=== PATIENT | male | born 1975 | race Caucasian/White ===

== ENCOUNTER 2018-08-08 03:50 | Emergency (ER) | payer BC, OTHER ==
[2018-08-08 04:20] VITALS: BMI 33.6
[2018-08-08] MEDS ORDERED: CLINDAMYCIN 600MG PREMIX IVPB 600 MG/50 ML BAG IVPB ONE ×3 (05:01→05:08)
[2018-08-08] MEDS ORDERED: DEXAMETHASONE SOD PHOSPHATE 10 MG/1 ML VIAL IVPUSH ONE (05:01)
[2018-08-08] MEDS ORDERED: KETOROLAC TROMETHAMINE 30 MG/1 ML VIAL IVPUSH ONE (05:01)
[2018-08-08] MEDS ORDERED: SODIUM CHLORIDE 0.9% 500 ML INFUS.BAG IV ONE (05:02)
[2018-08-08] MEDS ORDERED: DEXAMETHASONE SOD PHOSPHATE 10 MG/1 ML VIAL ONE (05:07)
[2018-08-08] MEDS ORDERED: KETOROLAC TROMETHAMINE 30 MG/1 ML VIAL ONE (05:07)
--- NOTE | 2018-08-08 05:17 | PDOC ---
History of Present Illness - General History Source: Patient Exam Limitations: No Limitations - History of Present Illness Initial Comments: 08/08/18 05:11 Patient is a 42-year-old male past medical history of childhood asthma, here with complaints of sore throat 1 week. Patient states he may have had an upper respiratory infection but then started to have a sore throat with a temp of 101 and initally took some antibiotics given to him by his for 3 days. He stopped the antibiotics because he was feeling better, but then felt like the sore throat returning 2 days ago and has progressively worsened. States this morning his throat just got very uncomfortable, pain was 8/10, and he felt like the throat was closing and was getting more difficult to swallow. PMHX: as above PSOCHX: (+) cig 6/day, ALL: NKDA GENERAL/CONSTITUTIONAL: No fever or chills. No weakness. No weight change. HEAD, EYES, EARS, NOSE AND THROAT: No change in vision. No ear pain or discharge. (+) sore throat. CARDIOVASCULAR: No chest pain or shortness of breath. RESPIRATORY: No cough, wheezing, or hemoptysis. GASTROINTESTINAL: No nausea, vomiting, diarrhea or constipation. No rectal bleeding. GENITOURINARY: No dysuria, frequency, or change in urination. MUSCULOSKELETAL: No joint or muscle swelling or pain. No neck or back pain. SKIN AND BREASTS: No rash or easy bruising. NEUROLOGIC: No headache, vertigo, loss of consciousness, or loss of sensation. PSYCHIATRIC: No depression or anxiety. ENDOCRINE: No increased thirst. No abnormal weight change. HEMATOLOGIC/LYMPHATIC: No anemia, easy bleeding, or history of blood clots. ALLERGIC/IMMUNOLOGIC: No hives or skin allergy. No latex allergy. GENERAL: The patient is awake, alert, and fully oriented, in no acute distress. HEAD: Normal with no signs of trauma. EYES: Pupils equal, round and reactive to light, extraocular movements intact, sclera anicteric, conjunctiva clear. ENT: Ears normal, nares patent, oropharynx (+) swelling to the palatopharyngeal area with erythema R>L without exudates. Moist mucous membranes. NECK: Normal range of motion, supple with tender lymphadenopathy, JVD, or masses. LUNGS: Breath sounds equal, clear to auscultation bilaterally. No wheezes, and no crackles. HEART: Regular rate and rhythm, normal S1 and S2 without murmur, rub. ABDOMEN: Soft, nontender, normoactive bowel sounds. No guarding, no rebound. No masses. EXTREMITIES: Normal range of motion, no edema. No clubbing or cyanosis. No cords, erythema, or tenderness. NEUROLOGICAL: Cranial nerves II through XII grossly intact. Normal speech, normal gait. PSYCH: Normal mood, normal affect. SKIN: Warm, Dry, normal turgor, no rashes or lesions noted. <Segundo-Joby Gomez - Last Filed: 08/08/18 05:36> <Ceci Michel - Last Filed: 08/08/18 06:28> - General Chief Complaint: Sore Throat Stated Complaint: SORE THROAT Past History - Past Medical History Asthma: Yes COPD: No - Immunization History Immunization Up to Date: Yes - Suicide/Smoking/Psychosocial Hx Smoking Status: Yes Smoking History: Current every day smoker Have you smoked in the past 12 months: No Number of Cigarettes Smoked Daily: 6 Information on smoking cessation initiated: Yes Hx Alcohol Use: No Drug/Substance Use Hx: No Substance Use Type: None <HannahFernandez dick - Last Filed: 08/08/18 05:36> <Ceci Michel - Last Filed: 08/08/18 06:28> - Past Medical History Allergies/Adverse Reactions: Allergies Allergy/AdvReac Type Severity Reaction Status Date / Time No Known Allergies Allergy Verified 08/08/18 04:20 Home Medications: Ambulatory Orders Promethazine HCl/Codeine [Prometh-Codein 6.25-10 mg/5 ml] 5 ml PO Q8H PRN #60 syrup 04/09/15 Clindamycin [Cleocin -] 300 mg PO Q6HPO #28 capsule 03/19/17 *Physical Exam - Vital Signs Last Vital Signs Temp Pulse Resp BP Pulse Ox 98.1 F 94 H 18 129/78 98 08/08/18 04:14 08/08/18 04:14 08/08/18 04:14 08/08/18 04:14 08/08/18 04:14 <Joby Jarrett - Last Filed: 08/08/18 05:36> - Vital Signs Last Vital Signs Temp Pulse Resp BP Pulse Ox 98.1 F 94 H 18 129/78 98 08/08/18 04:14 08/08/18 04:14 08/08/18 04:14 08/08/18 04:14 08/08/18 04:14 <Ceci Michel - Last Filed: 08/08/18 06:28> ED Treatment Course - LABORATORY CBC & Chemistry Diagram: 08/08/18 05:15 08/08/18 05:15 <Joby Jarrett - Last Filed: 08/08/18 05:36> - LABORATORY CBC & Chemistry Diagram: 08/08/18 05:15 08/08/18 05:15 - ADDITIONAL ORDERS Additional order review: Laboratory Results 08/08/18 05:15 Sodium 138 Potassium 4.5 Chloride 104 Carbon Dioxide 25 Anion Gap 10 BUN 9 Creatinine 0.8 Creat Clearance w eGFR 107.07 Random Glucose 175 H Calcium 8.7 Total Bilirubin 0.3 AST 26 ALT 48 Alkaline Phosphatase 123 H Total Protein 7.9 Albumin 3.8 08/08/18 05:15 RBC 5.17 MCV 81.9 MCHC 32.8 RDW 14.5 MPV 7.2 L Neutrophils % 79.1 Lymphocytes % 10.4 Monocytes % 7.7 Eosinophils % 1.9 D Basophils % 0.9 - Medications Given in the ED: ED Medications Discontinued Medications Generic Name Dose Route Start Last Admin Trade Name Freq PRN Reason Stop Dose Admin Dexamethasone Sodium Phosphate 10 mg 08/08/18 05:01 08/08/18 05:21 Decadron Injection - IVPUSH 08/08/18 05:02 10 mg ONCE ONE Administration Clindamycin Phosphate 600 mg in 50 mls @ 100 mls/hr 08/08/18 05:01 08/08/18 05:21 Cleocin 600 Mg Premix Ivpb - IVPB 08/08/18 05:30 100 mls/hr ONCE ONE Administration Ketorolac Tromethamine 30 mg 08/08/18 05:01 08/08/18 05:21 Toradol Injection - IVPUSH 08/08/18 05:02 30 mg ONCE ONE Administration Sodium Chloride 1,000 ml 08/08/18 05:02 08/08/18 05:22 Normal Saline - IV 08/08/18 05:03 1,000 ml ONCE ONE Administration <Ceci Michel - Last Filed: 08/08/18 06:28> Medical Decision Making - Medical Decision Making 08/08/18 05:11 Patient is a 42-year-old male past medical history of childhood asthma, here with complaints of sore throat 1 week. Patient states he may have had an upper respiratory infection but then started to have a sore throat with a temp of 101 and initally took some antibiotics given to him by his for 3 days. He stopped the antibiotics because he was feeling better, but then felt like the sore throat returning 2 days ago and has progressively worsened. States this morning his throat just got very uncomfortable, pain was 8/10, and he felt like the throat was closing and was getting more difficult to swallow. Symptoms are consistent with peritonsillar abscess. Labs, Pain meds, IV fluids, clindamycin, CT a soft tissue neck check for abscess. Will consider admitting patient for 24 hours, for continued IV antibiotics and resolution of swelling. <Joby Jarrett - Last Filed: 08/08/18 05:36>
[2018-08-08 05:25] LABS: BASO % 0.9 % (0-2.0); EOS % 1.9 % (0-4.5); HEMATOCRIT 42.4 % (35.4-49); HEMOGLOBIN 13.9 GM/dL (11.7-16.9); LYMPH % 10.4 % (8-40); MCH 26.9 pg (25.7-33.7); MCHC 32.8 g/dl (32.0-35.9); MEAN CELL VOLUME 81.9 fl (80-96); MEAN PLT VOLUME 7.2 fl (7.5-11.1); MONO % 7.7 % (3.8-10.2); NEUT % 79.1 % (42.8-82.8); PLATELET COUNT 323 K/MM3 (134-434); RBC 5.17 M/mm3 (4.00-5.60); RDW 14.5 % (11.9-15.9); WHITE BLOOD COUNT 14.8 K/mm3 (4.0-10.0)
[2018-08-08 06:00] LABS: ALBUMIN 3.8 g/dl (3.4-5.0); ALK PHOS 123 U/L (45-117); ANION GAP 10 MMOL/L (8-16); BILIRUBIN,TOTAL 0.3 mg/dL (0.2-1); BLOOD UREA NITROGEN 9 mg/dL (7-18); CALCIUM 8.7 mg/dL (8.5-10.1); CHLORIDE 104 mmol/L (98-107); CO2 25 mmol/L (21-32); CREATININE 0.8 mg/dL (0.55-1.3); GLUCOSE,RANDOM 175 mg/dL (74-106); POTASSIUM 4.5 mmol/L (3.5-5.1); SGOT/AST 26 U/L (15-37); SGPT/ALT 48 U/L (13-61); SODIUM 138 mmol/L (136-145); TOT PROT 7.9 g/dl (6.4-8.2)
--- NOTE | 2018-08-08 07:37 | PDOC ---
*Physical Exam - Vital Signs Last Vital Signs Temp Pulse Resp BP Pulse Ox 98.1 F 94 H 18 129/78 98 08/08/18 04:14 08/08/18 04:14 08/08/18 04:14 08/08/18 04:14 08/08/18 04:14 ED Treatment Course - LABORATORY CBC & Chemistry Diagram: 08/08/18 05:15 08/08/18 09:10 - ADDITIONAL ORDERS Additional order review: Laboratory Results 08/08/18 05:15 Sodium 138 Potassium 4.5 Chloride 104 Carbon Dioxide 25 Anion Gap 10 BUN 9 Creatinine 0.8 Creat Clearance w eGFR 107.07 Random Glucose 175 H Calcium 8.7 Total Bilirubin 0.3 AST 26 ALT 48 Alkaline Phosphatase 123 H Total Protein 7.9 Albumin 3.8 08/08/18 05:15 RBC 5.17 MCV 81.9 MCHC 32.8 RDW 14.5 MPV 7.2 L Neutrophils % 79.1 Lymphocytes % 10.4 Monocytes % 7.7 Eosinophils % 1.9 D Basophils % 0.9 - Medications Given in the ED: ED Medications Discontinued Medications Generic Name Dose Route Start Last Admin Trade Name Freq PRN Reason Stop Dose Admin Dexamethasone Sodium Phosphate 10 mg 08/08/18 05:01 08/08/18 05:21 Decadron Injection - IVPUSH 08/08/18 05:02 10 mg ONCE ONE Administration Clindamycin Phosphate 600 mg in 50 mls @ 100 mls/hr 08/08/18 05:01 08/08/18 05:21 Cleocin 600 Mg Premix Ivpb - IVPB 08/08/18 05:30 100 mls/hr ONCE ONE Administration Ketorolac Tromethamine 30 mg 08/08/18 05:01 08/08/18 05:21 Toradol Injection - IVPUSH 08/08/18 05:02 30 mg ONCE ONE Administration Sodium Chloride 1,000 ml 08/08/18 05:02 08/08/18 05:22 Normal Saline - IV 08/08/18 05:03 1,000 ml ONCE ONE Administration Medical Decision Making - Medical Decision Making 08/08/18 07:17 Patient received in signout from TIMOTEO Segundo. Patient here with complaints of sore throat with erythema to the left side concerning for [employer]. Patient currently awaiting CT Laboratory Tests 08/08/18 08/08/18 05:04 05:15 WBC 14.8 H Group A Strep Rapid Negative 08/08/18 08:46 CT shows right palatine tonsillar abscess versus hyperdense Ligman reassuring 1.6 cm x 1.9 x 1 cm. Enlarged right tonsillar pillar encroaching on the right parapharyngeal space. There is edema tracking along the right posterior lateral pharyngeal wall to the level of the right pyriform sinus which is not fully distended. Enhancing reactive lymph nodes are noted in the right posterior cervical space, right submandibular region. There is no evidence of retropharyngeal fluid collection or edema. Normal epiglottis and vallecula. Discussed with radiologist who stated patient received a second dose of IV contrast secondary to CT malfunction. Patient received another liter of fluid and will have repeat BMP done. Patient also recommended to urinate. Willl place call to ENT. States feeling moderate improvement after receiving medication but still with noted mild garbled speech. Noted erythema and edema to the right posterior pharnyx extending posteriorly 08/08/18 09:[address] katie Fritz was recommending ceftriaxone 2 g now and believes this patient does not require drainage of the left then 2 cm abscess and also recommends discharging patient home with a Medrol pack and clindamycin. Patient is to see the ENT specialist tomorrow in the office. Patient understands if symptoms worsen prior to tomorrow to go back to the emergency room immediately. *DC/Admit/Observation/Transfer Diagnosis at time of Disposition: Tonsil, abscess - Discharge Dispostion Disposition: HOME Condition at time of disposition: Improved - Prescriptions Prescriptions: Clindamycin [Cleocin -] 300 mg PO QID #28 capsule Methylprednisolone [Medrol Dose [place]] 4 mg PO ASDIR #21 tablet - Referrals Referrals: Michael Jones MD [Staff Physician] - - Patient Instructions Printed Discharge Instructions: DI for Peritonsillar Abscess -- Adult Additional Instructions: Eat soft foods as recommended to avoid irritation and difficulty swallowing. Please start steroids today along with your antibiotics. Please follow-up with ENT tomorrow by calling the number listed. If symptoms worsen prior to your follow-up please go directly to an ER - Post Discharge Activity
[2018-08-08] MEDS ORDERED: SODIUM CHLORIDE 1,000 ML IV STA (08:29)
[2018-08-08] MEDS ORDERED: CEFTRIAXONE 2 GM-D5W BAG 2 GM/50 ML BAG IVPB ONE (09:32)
[2018-08-08 09:52] LABS: ANION GAP 9 MMOL/L (8-16); BLOOD UREA NITROGEN 8 mg/dL (7-18); CHLORIDE 106 mmol/L (98-107); CO2 24 mmol/L (21-32); CREATININE 0.7 mg/dL (0.55-1.3); GLUCOSE,RANDOM 161 mg/dL (74-106); SODIUM 139 mmol/L (136-145)
[2018-08-08] MEDS ORDERED: CEFTRIAXONE 2 GM/100 ML BAG IVPB ONE (10:31)
[2018-08-08 11:07] VITALS: BP 120/90; PULSE 72; TEMP 98.5
== END 2018-08-08 11:09 | disposition home or self-care (01) ==
LOC: JER 03:50
PROC: 3E03329 Introduction of Other Anti-infective into Peripheral Vein, Percutaneous Approach (ICD-10-PCS; principal; 2018-08-08)
PROC: 3E03329 Introduction of Other Anti-infective into Peripheral Vein, Percutaneous Approach (ICD-10-PCS; 2018-08-08)
PROC: 3E0333Z Introduction of Anti-inflammatory into Peripheral Vein, Percutaneous Approach (ICD-10-PCS; 2018-08-08)
PROC: 3E0333Z Introduction of Anti-inflammatory into Peripheral Vein, Percutaneous Approach (ICD-10-PCS; 2018-08-08)
DX: J36 Peritonsillar abscess (principal)
CPT/HCPCS: 36415; 70498-TC; 80048; 80053; 85025; 87070; 87880; 99283-25; J1100

== ENCOUNTER 2020-12-28 17:40 | Emergency (ER) | payer BC, OTHER ==
[2020-12-28 17:54] VITALS: BP 154/88; PULSE 106; TEMP 98.9; BMI 34.4
== END 2020-12-28 18:25 | disposition home or self-care (01) ==
LOC: JER 17:40
DX: Z11.52 Encounter for screening for COVID-19 (principal); R09.81 Nasal congestion; J02.9 Acute pharyngitis, unspecified
CPT/HCPCS: 99283-25; C9803; U0003; U0005